=== PATIENT | male | born 1955 | race Caucasian/White ===

== ENCOUNTER 2020-06-13 17:32 | Emergency (ER) | payer MEDICARE ==
[2020-06-13 18:08] LABS: CHLORIDE,CL 99 mmol/L (98-107); SODIUM,NA 133 mmol/L (136-145)
[2020-06-13] MEDS: Ondansetron 4 MG/2 ML SDV IVPUSH ONE (18:11)
[2020-06-13] MEDS: Sodium Chloride 0.9% 1,000 ML IV ONE (18:35)
--- NOTE | 2020-06-13 20:31 | EDM.PDOC ---
ED HPI GENERAL MEDICAL PROBLEM - General Chief Complaint: Abdominal Pain Stated Complaint: hematochezia, headache Time Seen by Provider: 06/13/20 17:40 Source of Information: Reports: Patient, Care Home Records History Limitations: Reports: No Limitations - History of Present Illness INITIAL COMMENTS - FREE TEXT/NARRATIVE: Pt presents from basic care at [facility] for N/V and severe left sided MAY Symptoms began today Getting worse Nurses thought there might be blood in the emesis states he has a severe left side MAY and dizzy when moves Multiple emesis No fever No cough also noted to have brusiing to right upper eyelid but pt states he has not fallen Onset: Gradual Duration: Hour(s):, Getting Worse Location: Reports: Head, Abdomen Quality: Reports: Throbbing Severity: Moderate Worsens with: Reports: Movement Associated Symptoms: Reports: Headaches, Nausea/Vomiting Headache Pain Score (Numeric/FACES): 8 - Related Data Home Meds: Home Meds Acetaminophen 325 mg PO Q4HR PRN 06/13/20 [History] Acetaminophen [Acetaminophen Extra Strength] 1,000 mg PO DAILY 06/13/20 [History] Aspirin [Aspirin EC] 81 mg PO DAILY 06/13/20 [History] Docusate Sodium [Colace] 100 mg PO BID PRN 06/13/20 [History] Furosemide 40 mg PO DAILY PRN 06/13/20 [History] Gabapentin [Neurontin] 300 mg PO DAILY 06/13/20 [History] Rosuvastatin Calcium 40 mg PO DAILY 06/13/20 [History] Sertraline [Zoloft] 200 mg PO DAILY 06/13/20 [History] metFORMIN HCl [Glucophage Xr] 500 mg PO DAILY 06/13/20 [History] Social & Family History - Tobacco Use Tobacco Use Status *Q: Current Every Day Tobacco User Years of Tobacco use: 50 Packs/Tins Daily: 1 - Caffeine Use Caffeine Use: Reports: Coffee - Recreational Drug Use Recreational Drug Use: No ED ROS GENERAL - Review of Systems Review Of Systems: See Below Constitutional: Reports: No Symptoms HEENT: Reports: Other (Black eye on right) Respiratory: Reports: No Symptoms Cardiovascular: Reports: No Symptoms GI/Abdominal: Reports: Hematemesis, Nausea, Vomiting Musculoskeletal: Reports: No Symptoms Neurological: Reports: Dizziness, Headache Psychiatric: Reports: No Symptoms - Physical Exam Exam: See Below Exam Limited By: No Limitations General Appearance: Alert, WD/WN, Moderate Distress Eye Exam: Bilateral Eye: EOMI, PERRL Ears: Normal TMs Nose: Normal Inspection Throat/Mouth: Normal Oropharynx Head Exam: Other (ecchymosis to right upper eye lid) Neck: Non-Tender Respiratory/Chest: Lungs Clear Cardiovascular: Regular Rate, Rhythm GI/Abdominal: Soft, Non-Tender Neuro Exam (Abbreviated): Alert, Oriented, Normal Cognition, No Motor/Sensory Deficits Extremities: Normal Inspection Psychiatric: Normal Affect, Normal Mood Course - Vital Signs Last Recorded V/S: Last Vital Signs Temp 98 F 06/13/20 17:38 Pulse 72 06/13/20 17:38 Resp 20 06/13/20 17:38 BP 109/74 06/13/20 17:38 Pulse Ox 97 06/13/20 17:38 - Orders/Labs/Meds Orders: Active Orders 24 hr Category Date Time Status Head wo Cont [CT] Stat Exams 06/13/20 17:55 Taken Labs: Laboratory Tests 06/13/20 06/13/20 Range/Units 05:45 05:45 WBC 11.7 H (4.0-10.2) K/uL RBC 4.70 (4.33-5.41) M/uL Hgb 14.0 D (13.1-16.8) g/dL Hct 41.4 (39.0-49.0) % MCV 88.1 (84.0-98.0) fL MCH 29.8 (28.2-33.3) pg MCHC 33.8 (31.7-36.0) g/dL RDW 14.2 H (11.2-14.1) % Plt Count 207 (150-350) K/uL Neut % (Auto) 83.5 H (45.0-80.0) % Lymph % (Auto) 7.4 L (10.0-50.0) % [place] % (Auto) 7.4 (2.0-14.0) % Eos % (Auto) 0.3 (0.0-5.0) % Baso % (Auto) 1.4 (0.0-2.0) % Neut # (Auto) 9.78 H (1.40-7.00) K/uL Lymph # (Auto) 0.87 (0.50-3.50) K/uL [place] # (Auto) 0.86 (0.00-1.00) K/uL Eos # (Auto) 0.03 (0.00-0.50) K/uL Baso # (Auto) 0.16 (0.00-0.20) K/uL Sodium 133 L (136-145) mmol/L Potassium 4.2 (3.5-5.1) mmol/L Chloride 99 (98-107) mmol/L Carbon Dioxide 24.7 (21.0-32.0) mmol/L BUN 22 H (7-18) mg/dL Creatinine 0.76 (0.51-1.17) mg/dL Est Cr Clr Drug Dosing 101.83 mL/min Estimated GFR (MDRD) > 60 mL/min Glucose 167 H (74-106) mg/dL Calcium 8.5 (8.5-10.1) mg/dL Total Bilirubin 0.6 (0.2-1.0) mg/dL AST 23 (15-37) U/L ALT 30 (12-78) U/L Alkaline Phosphatase 68 (46-116) IU/L Total Protein 7.0 (6.4-8.2) g/dL Albumin 3.5 (3.4-5.0) g/dL Meds: Medications Discontinued Medications Generic Name Dose Route Start Last Admin Trade Name Freq PRN Reason Stop Dose Admin Dexamethasone 10 mg 06/13/20 20:24 Decadron IVPUSH 06/13/20 20:25 ONETIME ONE Sodium Chloride 1,000 mls @ 1,000 mls/hr 06/13/20 18:14 06/13/20 18:35 Normal Saline IV 06/13/20 19:13 1,000 mls/hr .BOLUS ONE Administration Ondansetron HCl 8 mg 06/13/20 18:04 06/13/20 18:11 Zofran IVPUSH 06/13/20 18:05 8 mg ONETIME ONE Administration - Re-Assessments/Exams Free Text/Narrative Re-Assessment/Exam: 06/13/20 20:[address] head per radiologist shows left brain hemorrhage with air in brain and edema around blood Consistent with trauma of some form D/W Dr Grayson [facility] ER Will accept in transfer Pt given Decadron 10 mg IV in ER Departure - Departure Time of Disposition: 20:30 Disposition: Home, Self-Care 01 Clinical Impression: Brain hem NEC w/o coma - Discharge Information *PRESCRIPTION DRUG MONITORING PROGRAM REVIEWED*: Not Applicable *COPY OF PRESCRIPTION DRUG MONITORING REPORT IN PATIENT DENNIS: Not Applicable Referrals: Rosie Aquino PA [Primary Care Provider] - Sepsis Event Note (ED) - Evaluation Sepsis Screening Result: No Definite Risk - Focused Exam Vital Signs: Vital Signs Temp Pulse Resp BP Pulse Ox 06/13/20 17:38 98 F 72 20 109/74 97 - My Orders Last 24 Hours: My Active Orders 06/13/20 17:55 Head wo Cont [CT] Stat - Assessment/Plan Last 24 Hours: My Active Orders 06/13/20 17:55 Head wo Cont [CT] Stat
[2020-06-13] MEDS: Dexamethasone 10 MG/ML SDV IVPUSH ONE (20:39)
[2020-06-13] MEDS: Sodium Chloride 0.9% 10 ML Syringe FLUSH PRN (20:39)
== END 2020-06-13 20:50 ==
LOC: LL.ED 17:32
DX: S06.2X9A Diffuse traumatic brain injury with loss of consciousness of unspecified duration, initial encounter (principal); S00.11XA Contusion of right eyelid and periocular area, initial encounter; F17.210 Nicotine dependence, cigarettes, uncomplicated; Z79.82 Long term (current) use of aspirin; Z79.899 Other long term (current) drug therapy; X58.XXXA Exposure to other specified factors, initial encounter
CPT/HCPCS: 36415; 70450; 80053; 85025; 96374; 96375; 99285; J1100; J2405; J7030; 99284